=== PATIENT | female | born 1980 | race Caucasian/White ===

== ENCOUNTER 2022-08-14 12:52 | Emergency (ER) | payer MEDICAID, OTHER ==
[~2022-08-14] VITALS: Ht 160 cm; Wt 57.6 kg
[2022-08-14] MEDS ORDERED: LORA-258 PO (13:21)
[2022-08-14] MEDS ORDERED: LEVE1000 PO (13:21)
[2022-08-14] MEDS ORDERED: HYDR-3980 PO (13:21)
--- NOTE | 2022-08-14 13:27 | NUR ---
PT IS IN ROOM #2A. DR DOMINGO EVALUATED THEPT.
[2022-08-14 13:39] LABS: HEMATOCRIT 40.9 % (31.2-41.9); MEAN CORPUSCULAR HEMOGLOBIN 32.1 uug (24.7-32.8); MEAN CORPUSCULAR VOLUME 96.5 fL (75.5-95.3); PLATELET COUNT (AUTO) 253 K/uL (179-408)
[2022-08-14 13:56] LABS: ALANINE AMINOTRANSFERASE 12 U/L (14-59); ALKALINE PHOSPHATASE 58 U/L (50-136); ASPARTATE AMINOTRANSFERASE 10 U/L (15-37); BILIRUBIN,DIRECT < 0.1 mg/dL (0.0-0.2); BILIRUBIN,TOTAL 0.3 mg/dL (0.2-1.0); CARBON DIOXIDE 24 mmol/L (21-32); CHLORIDE 104 mmol/L (98-107); CREATININE 0.8 mg/dL (0.6-1.3); GLUCOSE 86 mg/dL (74-106); POTASSIUM 4.2 mmol/L (3.5-5.1); TOTAL PROTEIN, SERUM 7.3 g/dL (6.4-8.2); UREA NITROGEN, BLOOD 12 mg/dL (7-18)
[2022-08-14 14:11] LABS: *URINE HCG, QUAL NEGATIVE (NEGATIVE)
[2022-08-14 14:34] LABS: *AMPHETAMINE, URINE NEGATIVE (NEGATIVE); *CANNABINOID, URINE NEGATIVE (NEGATIVE); *COCCAINE, URINE NEGATIVE (NEGATIVE); *OPIATE, URINE NEGATIVE (NEGATIVE); *PHENCYCLIDINE SCREEN,URINE NEGATIVE (NEGATIVE)
--- NOTE | 2022-08-14 15:14 | NUR ---
PT WAS D/C'd TO HOME. D/C INSTRUCTIONS GIVEN TO THE PT BY DR DOMINGO. PT LEFT HOSPITAL ER BY AC.
[2022-08-14 15:15] VITALS: BP 132/81
--- NOTE | 2022-08-14 15:15 | NUR ---
Social Work consult was requested for a patient in the emergency room for homeless resources. Patient was brought into the emergency room for weakness. Patient is a 42-year-old female. Patient is alert and oriented X3. Patient presents with anxious mood and congruent affect. Patient refused to answer assessment questions. was unable to ascertain a primary personal injury legal assistant. SW was unable to ascertain the patients current address. Patient states she is living in a [facility] but refused to state the name or location. Patient refused homeless resources and refused to sign the homeless waiver. Patient states she is receiving food stamps. SW was unable to ascertain a history of substance abuse or history of psychiatric diagnosis. There is no toxicology report. Patient states her discharge plan is to go back to the [facility] where she currently resides. Per nurse, James, patient resides at [address] [address] Nurse framing mill supervisor, Jennifer, gave approval for the to provide the patient with a taxi voucher [place] [address] [place] [address].
== END 2022-08-14 15:49 | disposition home or self-care (01) ==
LOC: ER 12:52
DX: R20.0 Anesthesia of skin (principal); G89.29 Other chronic pain; Z59.01 Sheltered homelessness; R94.31 Abnormal electrocardiogram [ECG] [EKG]
CPT/HCPCS: 36415; 70450; 71045; 84484; 84703; 85025; 93005; A4663; J7040